=== PATIENT | female | born 1995 | race Hispanic/Latino ===

== ENCOUNTER 2022-08-17 10:50 | Emergency (ER) | payer MEDICAID ==
[~2022-08-17] VITALS: Ht 165.1 cm; Wt 87.5 kg
[2022-08-17 11:24] LABS: APPEARANCE,URINE TURBID (CLEAR); BILIRUBIN,URINE NEGATIVE (NEGATIVE); COLOR,URINE YELLOW (YELLOW); GLUCOSE, URINE (UA) NEGATIVE (NEGATIVE); HCG,QUALITATIVE URINE POSITIVE (NEGATIVE); KETONES,URINE NEGATIVE (NEGATIVE); LEUKOCYTE ESTERASE ,URINE LARGE Leu/uL (NEGATIVE); NITRATE,URINE NEGATIVE (NEGATIVE); OCCULT BLOOD,URINE TRACE-INTACT (NEGATIVE); PROTEIN,URINE 30 mg/dL (NEGATIVE); UROBILINOGEN,URINE 0.2 mg/dL (0.2-1.0)
[2022-08-17 11:32] LABS: RBC,URINE 0-1 /HPF (0-1)
[2022-08-17 11:33] LABS: BACTERIA,URINE Many /HPF (None Seen); MUCUS,URINE Few LPF (None Seen); SQUAMOUS EPITHELIAL CELL,UR Many /HPF (0-2); WBC,URINE TNTC /HPF (0-1)
[2022-08-17 12:10] LABS: BASOPHILS % (AUTO) 0.2 % (0.0-5.0); EOSINOPHILS % (AUTO) 0.2 % (0.0-8.0); HEMATOCRIT 37.5 % (36-48); LYMPHOCYTES % (AUTO) 20.4 % (21.0-51.0); MEAN CORPUSCULAR HEMOGLOBIN 32.4 pg (27.0-33.0); MEAN CORPUSCULAR HGB CONC 35.2 g/dL (32.0-36.0); MEAN CORPUSCULAR VOLUME 91.9 fL (79-99); MONOCYTES % (AUTO) 7.2 % (3.0-13.0); NEUTROPHILS % (AUTO) 71.8 % (40.0-77.0); PLATELET COUNT (AUTO) 224 K/uL (130-400); RED BLOOD CELL COUNT(AUTO) 4.08 MIL/uL (4.00-5.50); RED CELL DISTRIBUTION WIDTH 11.5 % (11.0-15.5); WHITE BLOOD COUNT (AUTO) 8.2 K/uL (4.8-10.8)
[2022-08-17] MEDS ORDERED: LIDOCAINE HCL-MPF 2% 5ML VIAL ONE (12:15)
[2022-08-17 12:20] LABS: CREATININE 0.7 mg/dL (0.5-1.5)
[2022-08-17] MEDS ORDERED: PHENAZOPYRIDINE HCL 200 MG TABLET PO ONE (12:30)
[2022-08-17] MEDS ORDERED: CEFTRIAXONE 1G VIAL IM ONE (12:30)
[2022-08-17 12:47] LABS: ALBUMIN 3.6 g/dL (3.5-5.0); TOTAL PROTEIN, SERUM 7.5 g/dL (6.0-8.3)
[2022-08-17] MEDS ORDERED: PREN-61 PO (13:18)
[2022-08-17] MEDS ORDERED: PHEN-847 PO (13:18)
[2022-08-17] MEDS ORDERED: CEPH500B PO (13:18)
[2022-08-17 13:19] VITALS: BP 115/77
== END 2022-08-17 14:00 | disposition home or self-care (01) ==
LOC: EDH 10:50
DX: O20.0 Threatened abortion (principal); O23.41 Unspecified infection of urinary tract in pregnancy, first trimester; N39.0 Urinary tract infection, site not specified; Z3A.01 Less than 8 weeks gestation of pregnancy
CPT/HCPCS: 99284; 76801; 80053; 84702; 85025; 86900; 86901; 87088; 81001; 81025; 36415; 96372; J0696; J3490

== ENCOUNTER 2023-06-10 08:59 | Emergency (ER) | payer BC, MEDICAID ==
[~2023-06-10] VITALS: Ht 165.1 cm; Wt 86.2 kg
[~2023-06-10 08:59] MED LIST: PREN-226 PO
[2023-06-10 09:48] VITALS: BP 124/75; PULSE 84; RESP 18; O2SAT 100
== END 2023-06-10 10:27 | disposition home or self-care (01) ==
LOC: EEVIPCON 08:59 → EDH 08:59
DX: Z04.1 Encounter for examination and observation following transport accident (principal); Z02.89 Encounter for other administrative examinations
CPT/HCPCS: 99281

== ENCOUNTER 2023-10-28 00:12 | Emergency (ER) | payer BC, MEDICAID, OTHER ==
[~2023-10-28] VITALS: Ht 165.1 cm; Wt 99.3 kg
[2023-10-28 00:34] LABS: APPEARANCE,URINE CLEAR (CLEAR); BILIRUBIN,URINE NEGATIVE (NEGATIVE); COLOR,URINE YELLOW (YELLOW); GLUCOSE, URINE (UA) NEGATIVE (NEGATIVE); KETONES,URINE NEGATIVE (NEGATIVE); LEUKOCYTE ESTERASE ,URINE 250 Leu/uL (NEGATIVE); NITRATE,URINE NEGATIVE (NEGATIVE); OCCULT BLOOD,URINE MODERATE (NEGATIVE); PH,URINE 5.5 (5.0-8.0); PROTEIN,URINE 10 mg/dL (NEGATIVE)
[2023-10-28 00:40] LABS: ADD UA MICROSCOPIC YES
[2023-10-28 00:41] LABS: BASOPHILS # (AUTO) 0.05 K/uL (0.00-0.20); BASOPHILS % (AUTO) 0.6 % (0.0-5.0); EOSINOPHILS # (AUTO) 0.13 K/uL (0.00-0.70); EOSINOPHILS % (AUTO) 1.5 % (0.0-8.0); HEMATOCRIT 35.2 % (36-48); IMMATURE GRANULOCYTE ABSOLUTE 0.03 K/uL (0-1); LYMPHOCYTES # (AUTO) 2.3 K/uL (1.0-4.8); LYMPHOCYTES % (AUTO) 26.1 % (21.0-51.0); MEAN CORPUSCULAR HGB CONC 35.2 g/dL (32.0-36.0); MEAN CORPUSCULAR VOLUME 85.2 fL (79-99); MONOCYTES # (AUTO) 0.8 K/uL (0.1-1.0); MONOCYTES % (AUTO) 8.8 % (3.0-13.0); NEUTROPHILS # (AUTO) 5.4 K/uL (1.8-7.7); NEUTROPHILS % (AUTO) 62.7 % (40.0-77.0); PLATELET COUNT (AUTO) 237 K/uL (130-400); RED BLOOD CELL COUNT(AUTO) 4.13 MIL/uL (4.00-5.50); RED CELL DISTRIBUTION WIDTH 12.7 % (11.0-15.5); WHITE BLOOD COUNT (AUTO) 8.6 K/uL (4.8-10.8)
[2023-10-28 00:42] LABS: BACTERIA,URINE RARE /HPF (None Seen); MUCUS,URINE RARE LPF (None Seen); OTHER CASTS, URINE 1 /LPF (None Seen); SQUAMOUS EPITHELIAL CELL,UR MOD /HPF (0-2)
[2023-10-28 00:49] LABS: CREATININE 0.9 mg/dL (0.5-1.5); POTASSIUM 3.4 mmol/L (3.5-5.1)
[2023-10-28 00:54] LABS: ALBUMIN 3.6 g/dL (3.5-5.0); BILIRUBIN,TOTAL 0.2 mg/dL (0.2-1.0); TOTAL PROTEIN, SERUM 7.5 g/dL (6.0-8.3)
[2023-10-28] MEDS: 0.9%NACL 1000ML 1,000 ML IV SCH (01:15)
[2023-10-28 02:36] VITALS: BP 133/70; PULSE 58; RESP 19; O2SAT 100
[2023-10-28] MEDS ORDERED: CEPH500B PO (02:39)
[2023-10-28] MEDS: CEFTRIAXONE 1G VIAL IVPB ONE (02:56)
== END 2023-10-28 03:28 | disposition home or self-care (01) ==
LOC: EDH 00:12
DX: O23.41 Unspecified infection of urinary tract in pregnancy, first trimester (principal); Z3A.09 9 weeks gestation of pregnancy
CPT/HCPCS: 99285; 96365; 76801; 96361; 80053; 84702; 85025; 86900; 86901; 87088; 81001; 81025; 36415; J0696